=== PATIENT | male | born 1965 | race Caucasian/White ===

== ENCOUNTER 2017-02-14 22:39 | Emergency (ER) | payer BC ==
[2017-02-14 22:53] VITALS: TEMP 98.2
--- NOTE | 2017-02-14 22:53 | EDPHY ---
H & P Stated Complaint: high blood pressure starting February 03 per pt. c/o of FLANNERY. HPI/ROS: HPI CHIEF COMPLAINT: HTN HISTORY OF PRESENT ILLNESS: This patient very pleasant 51-year-old male, otherwise healthy, denies any significant medical history he has noticed for the past few days blood pressures been running high to be getting systolic blood pressure in the 150s and diastolics in the low 100s. He denies any complaints specifically denies chest pain, shortness of breath, severe headache. Denies nausea vomiting numbness or tingling or focal weakness. Did discuss this with his primary care doctor is due to see them on Sunday for hypertension. He had routine lab work done today which shows normal kidney function and normal liver function. He denies ever having hypertension before. He has consistently seen a diastolic in the low 100s. he has never taken blood pressure medication before. Here in the emergency room decided come and get evaluated 11 o'clock at night as he became concerned about his high readings that he has been seen today. Otherwise he feels fine he tells me feels well no acute distress denies chest pain or shortness of breath. 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 Exam Constitutional appears well nontoxic, triage nursing summary reviewed, vital signs reviewed, awake/alert. Eyes normal conjunctivae and sclera, EOMI, PERRLA. HENT normal inspection, atraumatic, moist mucus membranes, no epistaxis, neck supple/ no meningismus, no raccoon eyes. Respiratory clear to auscultation bilaterally, normal breath sounds, no respiratory distress, no wheezing. Cardiovascular rate normal, regular rhythm, no murmur, no edema, distal pulses normal. Gastrointestinal soft, non-tender, no rebound, no guarding, normal bowel sounds, no distension, no pulsatile mass. Genitourinary no CVA tenderness. Musculoskeletal no midline vertebral tenderness, full range of motion, no calf swelling, no tenderness of extremities, no meningismus, good pulses, neurovascularly intact. Skin pink, warm, & dry, no rash, skin atraumatic. Neurologic awake, alert and oriented x 3, AAOx3, moves all 4 extremities equally, motor intact, sensory intact, CN II-XII intact, normal cerebellar, normal vision, normal speech. Psychiatric normal mood/affect. Heme/Lymph/Immune no lymphadenopathy. Differential Diagnosis: Includes but is not limited to in a particular order asymptomatic hypertension, essential hypertension, no evidence of hypertensive urgency or emergency Medical Decision Making: Plan for this patient here in emergency room I did review his blood work from earlier today. He has normal kidney function normal liver function. His blood pressure here on the monitor is 150s over low 100s. Denies chest pain shortness of breath or severe headache. He has asymptomatic hypertension. He has a follow-up appointment on Sunday with his primary care doctor. I discussed risk versus benefit of starting him on oral blood pressure medication here versus waiting till Sunday. We discussed that is most likely better to see his primary care doctor on Sunday get started on blood pressure so that they can follow his blood pressure reaction to the blood pressure medications. He has agreed with this plan. He does understand to continue to watch his blood pressure over the next 48 hours recording it twice daily 9:00 a.m. 9:00 p.m.. Keeping a log. If he sees very high blood pressure develops severe headache chest pain or shortness of breath he understands return to the emergency room. Source: Patient - Personal History Current Tetanus Diphtheria and Acellular Pertussis (TDAP): Yes Tetanus Vaccine Date: within 10 years - Medical/Surgical History Hx Asthma: No Hx Chronic Respiratory Disease: No Hx Diabetes: No Hx Cardiac Disease: No Hx Renal Disease: No Hx Cirrhosis: No Hx Alcoholism: No Hx HIV/AIDS: No Hx Splenectomy or Spleen Trauma: No Other PMH: Sciatica - Social History Smoking Status: Never smoked Constitutional: Initial Vital Signs Temperature (C) 36.8 C 02/14/17 22:51 Heart Rate 58 L 02/14/17 22:51 Respiratory Rate 18 02/14/17 22:51 Blood Pressure 157/110 H 02/14/17 22:51 O2 Sat (%) 96 02/14/17 22:51 O2 Delivery Mode Room Air Allergies/Adverse Reactions: No Known Allergies Allergy (Verified 02/14/17 22:50) Home Medications: Medication Instructions Recorded amLODIPine BESYLATE [Norvasc 5 mg 5 mg PO DAILY #30 tab 02/14/17 (*)] Departure - Departure Disposition: Home, Routine, Self-Care Clinical Impression: Hypertension Qualifiers: Hypertension type: essential hypertension Qualified Code(s): I10 - Essential ( primary) hypertension Condition: Good Instructions: Hypertension (ED) Additional Instructions: 1. I do recommend he follow up with your primary care doctor on Sunday. 2. Please record her blood pressure 9:00 a.m. and 9:00 p.m. twice daily keep a log for her primary care doctor. 3. If you develop severe headache, chest pain, shortness of breath, you do not feel well and your blood pressure really high return to the emergency room. Referrals: Julio Cohn MD [Primary Care Provider] - As per Instructions Prescriptions: amLODIPine BESYLATE [Norvasc 5 mg (*)] 5 mg PO DAILY #30 tab
[2017-02-14 23:17] VITALS: PULSE 60; RESP 20; O2SAT 97
[2017-02-14 23:23] VITALS: BP 156/98
== END 2017-02-14 23:31 | disposition home or self-care (01) ==
LOC: CED 22:39
DX: I10 Essential (primary) hypertension (principal)